=== PATIENT | male | born 1975 | race Caucasian/White ===

== ENCOUNTER → 2018-05-05 | Outpatient (CLI) | payer OTHER ==
[2018-05-05 12:45] LABS: PLATELET COUNT, AUTOMATED 169 10^3/uL (150-450)
[2018-05-05 12:55] LABS: INR 0.88
[2018-05-05 12:56] LABS: PARTIAL THROMBOPLASTIN TIME 27.1 SECONDS (25.4-37.6)
== END ==
LOC: M WUC 10:10
DX: M54.12 Radiculopathy, cervical region (principal)
CPT/HCPCS: 85049

== ENCOUNTER 2018-10-21 10:58 | Emergency (ER) | payer OTHER ==
[~2018-10-21] VITALS: Ht 175.3 cm; Wt 81.8 kg
[2018-10-21 10:59] VITALS: BP 134/79
[2018-10-21] MEDS ORDERED: NAPR250T4 PO (11:09)
[2018-10-21] MEDS ORDERED: GABA-843 PO (11:09)
--- NOTE | 2018-10-21 11:58 | REP ---
Right forearm: Two views. History: Pain after fall. Findings: There is a transversely oriented fracture through the distal diaphysis of the ulna with 3 mm of displacement of the distal fragment in an ulnar direction. There is associated swelling. No radial fracture is appreciated. Impression: Distal diaphyseal fracture of the ulna with slight comminution and displacement. Electronically Signed by Christian Ivy MD 10/21/2018 11:49 A
[2018-10-21] MEDS ORDERED: NORCOTAB PO (13:19)
--- NOTE | 2018-10-21 13:42 | REP ---
Right upper extremity duplex venous ultrasound: History: Warmth and erythema and swelling. Arm injury in a fall the previous day. Findings: The right internal jugular, axillary, brachial, basilic, and cephalic veins are anechoic and compressible in the left upper extremity. Color flow imaging is homogeneous. Spectral Doppler interrogation is unremarkable. There is no evidence of right upper extremity venous thrombosis. Impression: Negative right upper extremity duplex venous ultrasound. No evidence of venous thrombosis. Electronically Signed by Christian Ivy MD 10/21/2018 01:33 P
== END 2018-10-21 13:32 | disposition home or self-care (01) ==
LOC: M ED 10:58
DX: S52.201A Unspecified fracture of shaft of right ulna, initial encounter for closed fracture (principal); W01.0XXA Fall on same level from slipping, tripping and stumbling without subsequent striking against object, initial encounter; Y92.019 Unspecified place in single-family (private) house as the place of occurrence of the external cause

== ENCOUNTER → 2019-03-12 | Outpatient (REF) | payer OTHER ==
[~2019-03-12] MED LIST: GABA-843 PO; HYDR-3715 PO; NAPR250T4 PO
[2019-03-12 16:19] LABS: INR 0.97
[2019-03-12 16:20] LABS: PARTIAL THROMBOPLASTIN TIME 32.8 SECONDS (25.4-37.6)
== END ==
LOC: M LABDRAW1 15:27
PROVIDERS: ATTEND Physician Assistant
DX: Z01.812 Encounter for preprocedural laboratory examination (principal)

== ENCOUNTER 2019-05-09 10:04 | Emergency (ER) | payer OTHER ==
[~2019-05-09] VITALS: Ht 175.3 cm; Wt 85.7 kg
[2019-05-09] MEDS ORDERED: GABA600T4 PO (10:11)
[2019-05-09] MEDS ORDERED: diphenhydrAMINE INJ 50MG/ML VIAL (J1200) IV STA (10:33)
[2019-05-09 10:42] LABS: BASO % 0.2 % (0.0-1.0); EOS % 0.5 % (0.0-3.0); HEMATOCRIT 45.1 % (42.0-52.0); HEMOGLOBIN 15.7 g/dl (13.5-17.5); LYMPH # 0.3 10^3/uL (1.5-4.5); LYMPH % 4.1 % (24.0-44.0); MEAN CORPUSCULAR HEMOGLOBIN 30.4 pg (27.0-33.0); MEAN CORPUSCULAR HGB CONC 34.8 g/dl (32.0-36.5); MEAN CORPUSCULAR VOLUME 87.2 fl (80.0-96.0); MONO # 0.5 10^3/uL (0.0-0.8); MONO % 7.2 % (0.0-5.0); NEUTROPHILS # 5.7 10^3/uL (1.8-7.7); NEUTROPHILS % 87.5 % (36.0-66.0); RED BLOOD COUNT 5.17 10^6/uL (4.30-6.10); WHITE BLOOD COUNT 6.5 10^3/uL (4.0-10.0)
[2019-05-09] MEDS ORDERED: NS 1,000 ML IV ONE ×2 (10:45)
[2019-05-09] MEDS ORDERED: METOCLOPRAMIDE INJ 10MG/2ML VIAL (J2765) IV ONE (10:45)
--- NOTE | 2019-05-09 10:55 | REP ---
Clinical: Cough and dyspnea . Comparison: 02/18/2013 . Findings: The mediastinum and cardiac silhouette are stable and within normal limits for portable technique. The lung bradshaw are clear without acute consolidation, effusion, or pneumothorax. Skeletal structures are intact. Impression: No acute cardiopulmonary process appreciated. Electronically Signed by Mat Carrasco MD 05/09/2019 10:48 A
[2019-05-09 11:18] LABS: ALBUMIN 3.2 GM/DL (3.2-5.2); ALT/SGPT 42 U/L (12-78); BILIRUBIN,DIRECT 0.2 MG/DL (0.0-0.2); BILIRUBIN,TOTAL 0.7 MG/DL (0.2-1.0); BLOOD UREA NITROGEN 23 MG/DL (7-18); CALCIUM LEVEL 8.5 MG/DL (8.5-10.1); CARBON DIOXIDE LEVEL 28 MEQ/L (21-32); CHLORIDE LEVEL 100 MEQ/L (98-107); CK-MB VALUE MASS < 1.0 NG/ML (<3.6); CPK CREATINE PHOSPHOKINASE 33 U/L (39-308); CREATININE FOR GFR 1.33 MG/DL (0.70-1.30); GLOMERULAR FILTRATION RATE > 60.0 (>60); GLUCOSE, FASTING 112 MG/DL (70-100); MB/CK RELATIVE INDEX 3.03 (< OR =4); NT-PRO BNP 118 PG/ML (<125); POTASSIUM SERUM 3.5 MEQ/L (3.5-5.1); SODIUM LEVEL 136 MEQ/L (136-145); TOTAL PROTEIN 6.8 GM/DL (6.4-8.2); TROPONIN I < 0.02 NG/ML (< 0.10)
--- NOTE | 2019-05-09 11:19 | ECGEPIP ---
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
[2019-05-09 11:24] LABS: PLATELET COUNT, AUTOMATED 54 10^3/uL (150-450)
[2019-05-09] MEDS ORDERED: ISOVUE-370 76% 100ML VIAL (Q9967) As Ordered ONE (11:29)
--- NOTE | 2019-05-09 11:49 | REP ---
Clinical: Acute headache . Comparison: None . Findings: The ventricles, sulci, and cisterns are normal in position and appearance. Billings-white differentiation is maintained. No acute intracranial hemorrhage, mass/mass effect, pathology or trauma/injury. No evidence for acute infarction. No extra-axial fluid collection. Calvarium is intact. Paranasal sinuses and mastoid air cells are clear. Impression: Normal noncontrast head CT. No evidence for acute intracranial pathology or trauma/injury. Electronically Signed by Mat Carrasco MD 05/09/2019 11:41 A
--- NOTE | 2019-05-09 12:15 | REP ---
Clinical: Acute chest pain with shortness of breath and elevated D-dimer levels. Technique: Axial contrast enhanced images from the thoracic inlet to the upper abdomen using 100 ml Isovue 370 intravenous contrast material with coronal and sagittal re-formations. Findings: Satisfactory enhancement of the pulmonary vasculature is achieved and no filling defects are identified to suggest pulmonary embolus. Thoracic aorta is normal caliber without aneurysm or dissection. Heart and pericardium are normal. Bilateral lung bradshaw are well aerated and clear without acute pulmonary parenchymal consolidation or atelectasis. No nodule or mass lesion. No pleural effusion/reaction. No pneumothorax. No adenopathy. Impression: No evidence for pulmonary embolus. No acute pleuroparenchymal or mediastinal process. Electronically Signed by Mat Carrasco MD 05/09/2019 12:07 P
[2019-05-09] MEDS ORDERED: KETOROLAC 30 MG/ML VIAL (J1885) IV ONE (12:30)
[2019-05-09 14:14] LABS: CK-MB VALUE MASS < 1.0 NG/ML (<3.6); CPK CREATINE PHOSPHOKINASE 24 U/L (39-308); MB/CK RELATIVE INDEX 4.17 (< OR =4); TROPONIN I < 0.02 NG/ML (< 0.10)
[2019-05-09 15:00] VITALS: BP 118/64
--- NOTE | 2019-05-09 15:44 | ECGEPIP ---
[facility] - ED Test Date: 2019-05-09 Pat Name: CON CHAPMAN Department: Room: - Gender: Male [employer]: fernando : 1975 Requested By: Nadira Simental Order Number: [id number] Reading MD: Nadira Simental Measurements Intervals [place] Rate: 90 P: 60 NE: 124 QRS: 3 QRSD: 97 T: 16 QT: 334 QTc: 409 Interpretive Statements SINUS RHYTHM NONSPECIFIC T-WAVE ABNORMALITY SIMILAR 05/09/19 10:17 Electronically Signed on 05-09-2019 15:44:23 EDT by Nadira Simental
[2019-05-12 00:07] LABS: Lyme Disease IgG/IgM Antibodie <0.91 ISR (0.00-0.90); Lyme Disease IgM Ab Quantitati <0.80 index (0.00-0.79)
== END 2019-05-09 15:17 | disposition home or self-care (01) ==
LOC: M ED 10:04
DX: D69.6 Thrombocytopenia, unspecified (principal); F17.210 Nicotine dependence, cigarettes, uncomplicated
CPT/HCPCS: 36415; 70450; 71045; 71275; 80048; 80076; 82550; 82553; 83880; 84443; 85025; 85049; 85055; 85379; 86617; 87040; 93005; 93041; 94760; 96361; 96374; 96375; 99285; J1200; J1885; J2765; Q9967

== ENCOUNTER 2019-05-12 11:42 | Emergency (ER) | payer OTHER ==
[~2019-05-12] VITALS: Ht 175.3 cm; Wt 84.1 kg
[~2019-05-12 11:42] MED LIST changes: +GABA600T4 PO
[2019-05-12] MEDS ORDERED: KETOROLAC 30 MG/ML VIAL (J1885) IV ONE (12:30)
[2019-05-12] MEDS ORDERED: NS 1,000 ML IV ONE (12:30)
[2019-05-12 13:07] LABS: HEMATOCRIT 39.2 % (42.0-52.0); HEMOGLOBIN 13.6 g/dl (13.5-17.5); MEAN CORPUSCULAR HEMOGLOBIN 28.9 pg (27.0-33.0); MEAN CORPUSCULAR HGB CONC 34.7 g/dl (32.0-36.5); MEAN CORPUSCULAR VOLUME 83.4 fl (80.0-96.0); PLATELET COUNT, AUTOMATED 141 10^3/uL (150-450); WHITE BLOOD COUNT 5.6 10^3/uL (4.0-10.0)
[2019-05-12] MEDS ORDERED: METOCLOPRAMIDE INJ 10MG/2ML VIAL (J2765) IV ONE (13:15)
[2019-05-12] MEDS ORDERED: ISOVUE-370 76% 100ML VIAL (Q9967) As Ordered ONE (13:16)
[2019-05-12 13:37] LABS: ALBUMIN 2.9 GM/DL (3.2-5.2); BILIRUBIN,DIRECT 0.2 MG/DL (0.0-0.2); BILIRUBIN,TOTAL 0.5 MG/DL (0.2-1.0); C REACTIVE PROTEIN QUANTITATIV 9.47 MG/DL (0.00-0.30); TOTAL PROTEIN 6.3 GM/DL (6.4-8.2)
[2019-05-12 13:41] LABS: ERYTHROCYTE SEDIMENTATION RATE 44 mm/hr (0-15)
[2019-05-12 13:59] LABS: ATYPICAL LYMPH 1 % (0-5); LYMPHOCYTES 11 % (16-52); MONOCYTES 4 % (0-8); NEUTROPHILS 84 % (35-75); PLATELET ESTIMATE NORMAL (NORMAL)
--- NOTE | 2019-05-12 14:24 | REP ---
CT NECK WITH CONTRAST: HISTORY: Neck pain. The naso-, zak-, and hypopharynx, larynx and subglottic trachea are normal in appearance. The salivary and thyroid glands are normal in size and density. Small lymph nodes less than 1 cm in size are present in the internal jugular chains, posterior triangles, submandibular, and submental areas. Minimal degenerative change is present in the spine. The lung apices are clear. The visualized sinuses are clear. IMPRESSION: There is no neck mass or adenopathy. Electronically Signed by Buddy Rivera MD 05/12/2019 06:03 P
--- NOTE | 2019-05-12 14:52 | REP ---
CT CERVICAL SPINE WITHOUT CONTRAST: HISTORY: Neck pain. There is no acute fracture or subluxation. Disc bulges with associated osteophyte formation are present at the C6-7 and C7-T1 levels. There is minimal narrowing of the spinal canal. The neural foramina are patent. The C6-7 and C7-T1 intervertebral discs are decreased in height consistent with disc degeneration. There is loss of the normal lordotic curve. IMPRESSION: Degenerative change as described above. Electronically Signed by Buddy Rivera MD 05/12/2019 06:06 P
[2019-05-12] MEDS ORDERED: LORazepam 2 MG/ML VIAL (J2060) IV STA (15:10)
[2019-05-12] MEDS ORDERED: methylPREDNISolone INJ 125 MG/2 ML VIAL (J2930) IV ONE (15:30)
[2019-05-12] MEDS ORDERED: ACETAMINOPHEN 325 MG TAB PO ONE (16:00)
[2019-05-12] MEDS ORDERED: PERC5TAB12 PO (16:19)
[2019-05-12] MEDS ORDERED: PRED10TA2 PO (16:19)
[2019-05-12] MEDS ORDERED: PERCOCET 5MG/325MG TAB PO ONE (16:30)
[2019-05-12 16:40] VITALS: BP 132/70
[2019-05-14 00:12] LABS: Lyme Disease IgG/IgM Antibodie <0.91 ISR (0.00-0.90); Lyme Disease IgM Ab Quantitati <0.80 index (0.00-0.79)
== END 2019-05-12 16:46 | disposition home or self-care (01) ==
LOC: M ED 11:42
DX: G44.209 Tension-type headache, unspecified, not intractable (principal); B34.9 Viral infection, unspecified
CPT/HCPCS: 70491; 72125; 80047; 80076; 83605; 85025; 85652; 86140; 86617; 87040; 96374; 96375; 99284; J1885; J2060; J2765; J2930; Q9967

== ENCOUNTER → 2019-05-26 | Outpatient (CLI) | payer OTHER ==
[~2019-05-26] MED LIST changes: +PERC5TAB12 PO; +PRED10TA2 PO
[2019-05-26 12:59] LABS: HEMATOCRIT 43.9 % (42.0-52.0); HEMOGLOBIN 14.4 g/dl (13.5-17.5); MEAN CORPUSCULAR HEMOGLOBIN 29.5 pg (27.0-33.0); MEAN CORPUSCULAR HGB CONC 32.8 g/dl (32.0-36.5); PLATELET COUNT, AUTOMATED 207 10^3/uL (150-450); RED BLOOD COUNT 4.88 10^6/uL (4.30-6.10); WHITE BLOOD COUNT 10.4 10^3/uL (4.0-10.0)
[2019-05-26 13:26] LABS: ERYTHROCYTE SEDIMENTATION RATE 118 mm/hr (0-15)
[2019-05-26 16:27] LABS: FOLATE 12.7 NG/ML (>5.4); VITAMIN B12 LEVEL 292 PG/ML (247-911)
[2019-05-26 16:29] LABS: HIV 1&2 SCREEN CENTAUR NEGATIVE (NEGATIVE)
[2019-05-26 16:35] LABS: C REACTIVE PROTEIN QUANTITATIV < 0.30 MG/DL (0.00-0.30)
== END ==
LOC: M WUC 11:17
PROVIDERS: ATTEND Family Medicine
DX: D69.6 Thrombocytopenia, unspecified (principal)

== ENCOUNTER → 2019-05-28 | Outpatient (CLI) | payer OTHER ==
[2019-05-28 18:01] LABS: BASO % 0.4 % (0.0-1.0); EOS # 0.2 10^3/uL (0.0-0.50); EOS % 1.4 % (0.0-3.0); HEMATOCRIT 45.1 % (42.0-52.0); HEMOGLOBIN 14.7 g/dl (13.5-17.5); LYMPH # 1.7 10^3/uL (1.5-4.5); LYMPH % 16.2 % (24.0-44.0); MEAN CORPUSCULAR HEMOGLOBIN 28.9 pg (27.0-33.0); MEAN CORPUSCULAR HGB CONC 32.6 g/dl (32.0-36.5); MEAN CORPUSCULAR VOLUME 88.8 fl (80.0-96.0); MONO # 0.9 10^3/uL (0.0-0.8); MONO % 8.2 % (0.0-5.0); NEUTROPHILS # 7.5 10^3/uL (1.8-7.7); NEUTROPHILS % 72.7 % (36.0-66.0); PLATELET COUNT, AUTOMATED 179 10^3/uL (150-450); RED BLOOD COUNT 5.08 10^6/uL (4.30-6.10); WHITE BLOOD COUNT 10.4 10^3/uL (4.0-10.0)
[2019-05-28 18:41] LABS: AMORPHOUS SEDIMENT MODERATE (NEGATIVE); APPEARANCE, URINE TURBID (CLEAR); BACTERIA, URINE AUTO 1+ (NEGATIVE); BILIRUBIN, URINE AUTO NEGATIVE (NEGATIVE); BLOOD, URINE BLOOD NEGATIVE (NEGATIVE); COLOR, URINE YELLOW (YELLOW); GLUCOSE, URINE (UA) AUTO NEGATIVE (NEGATIVE); KETONE, URINE AUTO NEGATIVE (NEGATIVE); LEUKOCYTE ESTERASE, URINE AUTO NEGATIVE (NEGATIVE); NITRITE, URINE AUTO NEGATIVE (NEGATIVE); PROTEIN, URINE AUTO NEGATIVE (NEGATIVE); RBC, URINE AUTO 0 /HPF (0-3); SPECIFIC GRAVITY URINE AUTO 1.029 (1.002-1.035); SQUAMOUS EPITHELIAL CELL UR AU 0 /HPF (0-6); UROBILINOGEN, URINE AUTO 0.2 mg/dL (0.0-2.0); WBC, URINE AUTO 0 /HPF (0-3)
[2019-05-28 19:37] LABS: ERYTHROCYTE SEDIMENTATION RATE 2 mm/hr (0-15)
== END ==
LOC: M WUC 15:33
PROVIDERS: ATTEND Family Medicine
DX: D69.6 Thrombocytopenia, unspecified (principal); R70.0 Elevated erythrocyte sedimentation rate

== ENCOUNTER → 2019-06-21 | Outpatient (CLI) | payer OTHER ==
[2019-06-21 13:25] LABS: BASO # 0.1 10^3/uL (0.0-0.2); BASO % 0.8 % (0.0-1.0); EOS # 0.2 10^3/uL (0.0-0.5); EOS % 3.2 % (0.0-3.0); HEMATOCRIT 43.1 % (42.0-52.0); HEMOGLOBIN 14.4 g/dl (13.5-17.5); LYMPH # 1.5 10^3/uL (1.5-5.0); LYMPH % 23.6 % (24.0-44.0); MEAN CORPUSCULAR HEMOGLOBIN 29.5 pg (27.0-33.0); MEAN CORPUSCULAR HGB CONC 33.4 g/dl (32.0-36.5); MEAN CORPUSCULAR VOLUME 88.3 fl (80.0-96.0); MONO # 0.6 10^3/uL (0.0-0.8); MONO % 9.8 % (0.0-5.0); NEUTROPHILS # 4.1 10^3/uL (1.5-8.5); NEUTROPHILS % 62.3 % (36.0-66.0); PLATELET COUNT, AUTOMATED 158 10^3/uL (150-450); RED BLOOD COUNT 4.88 10^6/uL (4.30-6.10); WHITE BLOOD COUNT 6.5 10^3/uL (4.0-10.0)
[2019-06-21 13:53] LABS: ERYTHROCYTE SEDIMENTATION RATE 17 mm/hr (0-15)
== END ==
LOC: M WUC 12:19
PROVIDERS: ATTEND Family Medicine
DX: R70.0 Elevated erythrocyte sedimentation rate (principal)

== ENCOUNTER 2025-05-20 09:05 | Day surgery (SDC) | payer OTHER ==
[~2025-05-20] VITALS: Ht 175.3 cm; Wt 81.6 kg
[~2025-05-20 09:05] MED LIST changes: +GABA-1172 PO; +GABA-1490 PO; -GABA-843 PO; -GABA600T4 PO; +LIDOCAINE 2% 100 MG/5 ML SDV (FOR ANES.) As Ordered ONE; +NAPR-849 PO; -NAPR250T4 PO
[2025-05-20 10:11] VITALS: TEMP 97.8
[2025-05-20 10:26] VITALS: BP 121/85; O2SAT 98
== END 2025-05-20 10:29 | disposition home or self-care (01) ==
LOC: M OPP 09:05
PROVIDERS: ATTEND Surgery
DX: Z12.11 Encounter for screening for malignant neoplasm of colon (principal); K64.0 First degree hemorrhoids; F17.210 Nicotine dependence, cigarettes, uncomplicated